=== PATIENT | female | born 1975 | race Caucasian/White ===

== ENCOUNTER 2016-09-27 09:19 | Emergency (ER) | payer OTHER ==
--- NOTE | 2016-09-27 11:06 | ED ORDER SUMMARY ---
..... Patient: JENNY RADER OrderSheet [facility] VisitID: [id number] [address] [place] [address] 40y, F Registration Date/Time: 09/27/2016 ORDER SHEET Weight: 90.7 kg (stated) Allergies: No Known Drug Allergy GENERAL ORDERS: MEDICATION ORDERS: Zofran ODT PO 4 mg (NOW) (10:09 09/27/2016 Marya Avalos) (10:20 Kim R.N.) Motrin PO 800 mg (NOW) (10:09/27/2016 Marya Avalos) (10:21 Kmi R.N.) Claritin PO 10 mg (NOW) (10:09/27/2016 Marya Avalos) (10:21 Kim R.N.) IV FLUIDS: ORDER SHEET NOTES: [Electronically signed by aJcob Wiley Dr. (11:06 09/27/2016)] [Electronically signed by Bipin Reilly R.N. (12:43 09/27/2016)] [Electronically locked/signed by Bipin Reilly R.N. (12:43 09/27/2016)]
--- NOTE | 2016-09-27 11:06 | ED CLINICAL REPORT ---
Clinical Report - Physicians/Mid Levels [facility] [address] [place] [address] 09/27/2016 9:22 Patient: JENNY RADER Arrived- By private vehicle. Historian- patient. HISTORY OF PRESENT ILLNESS Chief Complaint: COUGH. headache. This started today and is still present but is improving. It was gradual in onset and has been constant but is not gone now. The illness is described as moderate. The patient has had a cough, nasal congestion, muscle aches and a nasal discharge. (patient was recently moving here to the area. Reports that she has been working too hard likely and overdid it. States that she went to bed last night at 9 PM Even though it was New Year's Erin. reports no history of headaches however states that her head hurts all over. Reports it is constant. States that it took more than 1 hour for the headache to reach its maximum intensity. States that the headache is now improving. Patient states that she had taken Tylenol prior to arrival. Reports no other alleviating or aggravating factors. No family history of headaches. No personal history of headaches.). Additional history - The patient has had contact with a sick individual. (spouse). Similar symptoms previously: None. Recent medical care: Not recently seen/assessed. REVIEW OF SYSTEMS No headache, eye discomfort, pedal edema or skin rash. No visual symptoms. All systems otherwise negative, except as recorded above. PAST HISTORY See nurses notes. Additional Surgeries: no known surgeries. Medications: None. Allergies: No Known Drug Allergy. SOCIAL HISTORY Smoker- current status unknown. No alcohol use or drug use. Recent travel. Is a local resident. FAMILY HISTORY (no family history of diabetes, hypertension, headaches, or neurological problems.). ADDITIONAL NOTES The nursing notes have been reviewed. PHYSICAL EXAM Vital Signs: 09/27/2016 09:54 BP: 107/69. HR: 74. RR: 16. O2 saturation: 96%. Temp: 98.6 F. Pain level now: 3/10. Blood pressure normal. Oxygen saturation normal. Appearance: Alert. No acute distress. Eyes: Pupils equal, round and reactive to light. Eyes normal inspection. ENT: Ears normal. Nose normal. Pharynx normal. Uvula midline. (No papilledema. Normal retinal vasculature.). Neck: Normal inspection. Neck supple. CVS: Normal heart rate and rhythm. Heart sounds normal. Pulses normal. Respiratory: No respiratory distress. Breath sounds normal. Abdomen: Soft and nontender. No organomegaly. Back: Normal inspection. Skin: Skin warm and dry. Normal skin color. No rash. Normal skin turgor. Extremities: Extremities exhibit normal ROM. No lower extremity edema. Neuro: Oriented X 3. No motor deficit. No sensory deficit. PROGRESS AND PROCEDURES Course of Care: the patient is a pleasant 40-year-old female presenting for evaluation of upper respiratory tract symptoms including headache. Do not the patient has meningitis or space-occupying lesion or subarachnoid hemorrhage based on patient's examination and history. Patient's neck is supple. No meningeal signs. Patient was not here. Patient is also afebrile here in the emergency department. Patient has a sick contact. etiology of current symptoms today in the emergency department is likely viral. Do not feel further evaluation or workup is warranted. Do not feel patient needs to be admitted. Medications only provide of her symptomatically control. Patient was reevaluated after administration of medications. Patient reports feeling significantly better. Patient states she feels comfortable with returning home and continuing her care as an outpatient. Discussed the patient workup, diagnosis, home care, follow-up, and return precautions. All questions answered. The patient expressed understanding of these instructions and was agreeable to them. Disposition: Discharged. Condition: good. CLINICAL IMPRESSION 09/27/2016 09:54 BP: 107/69. HR: 74. RR: 16. O2 saturation: 96%. Temp: 98.6 F. Pain level now: 10. Acute headache. Blood pressure normal. Oxygen saturation normal. Acute viral syndrome INSTRUCTIONS Warnings: GENERAL WARNINGS: Return or contact your physician immediately if your condition worsens or changes unexpectedly, if not improving as expected, or if other problems arise. Specifically return if pain, vomiting, bleeding, breathing difficulty or fever. vision changes, numbness, weakness, tingling, or other concerns. Your Current Medications: CONTINUE TAKING THE FOLLOWING MEDICATIONS: None*. Prescription Medications: Phenergan w/ Codeine 10mg / 6.25mg per 5 mL: take 1 teaspoon every 6 hours as needed for pain or cough. Dispense sixty (60) mL. No refill. Substitution is permissible. OTC Medications: Acetaminophen (available over the counter): take according to label instructions. Motrin (available over the counter): take according to label instructions. Claritin 10 mg (available over the counter): take 1 tablet orally every 12 hours as needed for congestion. Dispense thirty (30). No refill. Substitution is permissible. Follow-up: Return to the emergency department in three days as needed. Follow up with your doctor in three days. Reason for referral: Recheck today's concerns. Screening today revealed the patient's blood pressure to be in the normal range. The patient should follow up with a primary care provider for blood pressure management. Understanding of the discharge instructions verbalized by patient. Follow-up with: [facility], , , [address], , [place], [id number] Follow up. Reason for referral: please contact this office if you do not have a primary care doctor. Summary of care provided to patient via paper. (Electronically signed by Jacob Wiley Dr. 09/27/2016 11:06)
--- NOTE | 2016-09-27 11:06 | ED ORDER SUMMARY ---
..... Patient: JENNY RADER OrderSheet [facility] VisitID: [id number] [address] [place] [address] 40y, F Registration Date/Time: 09/27/2016 ORDER SHEET Weight: 90.7 kg (stated) Allergies: No Known Drug Allergy GENERAL ORDERS: MEDICATION ORDERS: Zofran ODT PO 4 mg (NOW) (10:09 09/27/2016 Marya Avalos) (10:20 Kim R.N.) Motrin PO 800 mg (NOW) (10:09/27/2016 Marya Avalos) (10:21 Kim R.N.) Claritin PO 10 mg (NOW) (10:09/27/2016 Marya Avalos) (10:21 Kim R.N.) IV FLUIDS: ORDER SHEET NOTES: [Electronically signed by Jacob Wiley Dr. (11:06 09/27/2016)] [Electronically signed by Bipin Reilly R.N. (12:43 09/27/2016)] [Electronically locked/signed by Bipin Reilly R.N. (12:43 09/27/2016)]
--- NOTE | 2016-09-27 11:06 | ED CLINICAL REPORT ---
Clinical Report - Physicians/Mid Levels [facility] [address] [place] [address] 09/27/2016 9:22 Patient: JENNY RADER Arrived- By private vehicle. Historian- patient. HISTORY OF PRESENT ILLNESS Chief Complaint: COUGH. headache. This started today and is still present but is improving. It was gradual in onset and has been constant but is not gone now. The illness is described as moderate. The patient has had a cough, nasal congestion, muscle aches and a nasal discharge. (patient was recently moving here to the area. Reports that she has been working too hard likely and overdid it. States that she went to bed last night at 9 PM Even though it was New Year's Erin. reports no history of headaches however states that her head hurts all over. Reports it is constant. States that it took more than 1 hour for the headache to reach its maximum intensity. States that the headache is now improving. Patient states that she had taken Tylenol prior to arrival. Reports no other alleviating or aggravating factors. No family history of headaches. No personal history of headaches.). Additional history - The patient has had contact with a sick individual. (spouse). Similar symptoms previously: None. Recent medical care: Not recently seen/assessed. REVIEW OF SYSTEMS No headache, eye discomfort, pedal edema or skin rash. No visual symptoms. All systems otherwise negative, except as recorded above. PAST HISTORY See nurses notes. Additional Surgeries: no known surgeries. Medications: None. Allergies: No Known Drug Allergy. SOCIAL HISTORY Smoker- current status unknown. No alcohol use or drug use. Recent travel. Is a local resident. FAMILY HISTORY (no family history of diabetes, hypertension, headaches, or neurological problems.). ADDITIONAL NOTES The nursing notes have been reviewed. PHYSICAL EXAM Vital Signs: 09/27/2016 09:54 BP: 107/69. HR: 74. RR: 16. O2 saturation: 96%. Temp: 98.6 F. Pain level now: 3/10. Blood pressure normal. Oxygen saturation normal. Appearance: Alert. No acute distress. Eyes: Pupils equal, round and reactive to light. Eyes normal inspection. ENT: Ears normal. Nose normal. Pharynx normal. Uvula midline. (No papilledema. Normal retinal vasculature.). Neck: Normal inspection. Neck supple. CVS: Normal heart rate and rhythm. Heart sounds normal. Pulses normal. Respiratory: No respiratory distress. Breath sounds normal. Abdomen: Soft and nontender. No organomegaly. Back: Normal inspection. Skin: Skin warm and dry. Normal skin color. No rash. Normal skin turgor. Extremities: Extremities exhibit normal ROM. No lower extremity edema. Neuro: Oriented X 3. No motor deficit. No sensory deficit. PROGRESS AND PROCEDURES Course of Care: the patient is a pleasant 40-year-old female presenting for evaluation of upper respiratory tract symptoms including headache. Do not the patient has meningitis or space-occupying lesion or subarachnoid hemorrhage based on patient's examination and history. Patient's neck is supple. No meningeal signs. Patient was not here. Patient is also afebrile here in the emergency department. Patient has a sick contact. etiology of current symptoms today in the emergency department is likely viral. Do not feel further evaluation or workup is warranted. Do not feel patient needs to be admitted. Medications only provide of her symptomatically control. Patient was reevaluated after administration of medications. Patient reports feeling significantly better. Patient states she feels comfortable with returning home and continuing her care as an outpatient. Discussed the patient workup, diagnosis, home care, follow-up, and return precautions. All questions answered. The patient expressed understanding of these instructions and was agreeable to them. Disposition: Discharged. Condition: good. CLINICAL IMPRESSION 09/27/2016 09:54 BP: 107/69. HR: 74. RR: 16. O2 saturation: 96%. Temp: 98.6 F. Pain level now: 10. Acute headache. Blood pressure normal. Oxygen saturation normal. Acute viral syndrome INSTRUCTIONS Warnings: GENERAL WARNINGS: Return or contact your physician immediately if your condition worsens or changes unexpectedly, if not improving as expected, or if other problems arise. Specifically return if pain, vomiting, bleeding, breathing difficulty or fever. vision changes, numbness, weakness, tingling, or other concerns. Your Current Medications: CONTINUE TAKING THE FOLLOWING MEDICATIONS: None*. Prescription Medications: Phenergan w/ Codeine 10mg / 6.25mg per 5 mL: take 1 teaspoon every 6 hours as needed for pain or cough. Dispense sixty (60) mL. No refill. Substitution is permissible. OTC Medications: Acetaminophen (available over the counter): take according to label instructions. Motrin (available over the counter): take according to label instructions. Claritin 10 mg (available over the counter): take 1 tablet orally every 12 hours as needed for congestion. Dispense thirty (30). No refill. Substitution is permissible. Follow-up: Return to the emergency department in three days as needed. Follow up with your doctor in three days. Reason for referral: Recheck today's concerns. Screening today revealed the patient's blood pressure to be in the normal range. The patient should follow up with a primary care provider for blood pressure management. Understanding of the discharge instructions verbalized by patient. Follow-up with: [facility], , , [address], , [place], [address] Follow up. Reason for referral: please contact this office if you do not have a primary care doctor. Summary of care provided to patient via paper. (Electronically signed by Jacob Wiley Dr. 09/27/2016 11:06)
--- NOTE | 2016-09-27 11:06 | ED NURSING NOTES ---
Clinical Report - Nurses [facility] [address] [place] [address] 09/27/2016 9:22 Patient: JENNY RADER TRIAGE Triage time 0954 AM. Chief Complaint: HEADACHE. Alert. No acute distress. SEPSIS SCREEN: Sepsis Screen. Negative (no infection suspected/documented). DONTAE COMA SCORE: Harmony Coma Scale: 15- eyes open spontaneously (4); best verbal response- oriented x 4 (5); best motor response- obeys commands (6). --10:00 Bipin Reilly R.N. 09:54 09/27/16. BP: 107/69 taken on the left arm, via an automated monitor, while lying. HR: 74. RR: 16. O2 saturation: 96%. Temp: 98.6 F (oral). Pain level now: 12/04. --10:00 Bipin Reilly R.N. Weight: 90.7 kg stated. Height/Length: 65 inches Per Patient. BMI: 33.3. --09:56 Bipin Reilly R.N. Medications None. --09:56 Bipin Reilly R.N. Allergies No Known Drug Allergy. --09:57 Bipin Reilly R.N. History Arrived by private vehicle. Historian: patient. Accompanied by family. This started about 0400 AM. ( Patient presents to the ED with symptoms of a cough x4 days and headache beginning at 0400am this morning. Patient states that she also had symptoms of nausea this morning along with her headache. Patient states that she took Tylenol this morning which helped take the edge off the headache and states that she is no longer nauseous. Patient states that her has also been experiencing similar symptoms.). ( cough, "icky"). Treatment [employer]: Took Tylenol. PAST MEDICAL HX: Negative. SOCIAL HX: Light tobacco smoker (cigarette)- less than 1/2 a pack per day. She has had contact with a sick spouse. Symptoms of the sick contact include cough. SELF HARM ASSESSMENT: A self harm assessment was performed. The patient answered "no" to the question "Have you recently felt down, depressed, or hopeless?", "Have you noticed less interest or pleasure in doing things?", "Do you have thoughts of harming or killing yourself?", "Are you here because you tried to hurt yourself?", "Have you ever tried to hurt yourself before today?", "Have you recently had thoughts about harming or killing others?" and "Do you have any dangerous items in your possession?". FALL RISK ASSESSMENT: Fall risk assessment completed. No fall risk identified. NUTRITIONAL RISK ASSESSMENT: The nutritional risk assessment revealed no deficiencies. FUNCTIONAL ASSESSMENT: Functional assessment: no impairments noted. LEARNING NEEDS ASSESSMENT: The learning needs assessment revealed no barriers. SKIN INTEGRITY ASSESSMENT: Skin integrity risk assessment completed. No skin integrity risk identified. --10:00 Bipin Reilly R.N. PROBLEMS: no known problems. ADDITIONAL SURGERIES: no known surgeries. Assessment The patient states feels better. --10:00 Bipin Reilly R.N. Interventions ID band on patient. --10:00 Bipin Reilly R.N. PHYSICAL ASSESSMENT Ambulatory to room. GENERAL / NEURO / PSYCH: Alert. Oriented X 4. Appears in no acute distress. Speech within normal limits. HEENT: No facial asymmetry noted. Pupils equal, round and reactive to light. RESPIRATORY: No respiratory distress. Respirations not labored. Cough productive of scant amounts of thick sputum. Chest nontender. Breath sounds within normal limits. CVS: Capillary refill less than 2 seconds. GI / : The patient has had nausea. Abdomen soft and nontender. SKIN: Skin is warm and dry. --10:01 Bipin Reilly R.N. NURSING PROGRESS NOTES Monitoring of patient in place. Patient gowned. Head of bed elevated. Reassurance given. Lights dimmed. Call light placed in reach. --10:01 Bipin Reilly R.N. 10:20 09/27/2016 Zofran ODT (Ondansetron) PO Oral Disintegrating Tablets 4 mg given. Allergies verified and confirmed 5 rights. --10:20 Bipin Reilly R.N. 10:21 09/27/2016 Motrin PO Tablets 800 mg given. Allergies verified and confirmed 5 rights. --10:21 Bipin Reilly R.N. 10:21 09/27/2016 Claritin (Loratadine) PO Tablets 5 mg given. Allergies verified and confirmed 5 rights. --10:21 Bipin Reilly R.N. DISPOSITION / DISCHARGE 11:23 09/27/16. Departure time: 1120. Condition at departure: improved and stable. No learning barriers present. Discharge instructions provided and reviewed with the patient. Reviewed medication(s) side effects, precautions, dosing and course information. Prescription(s) given to the patient. Patient verbalized understanding. Written instructions provided in Croatian. The patient was discharged by the physician. She was discharged home. She left the Emergency Department ambulatory and via private vehicle. Patient driving. --11:23 Geri Moore R.N. 11:22 09/27/16. BP: 100/57. HR: 67. RR: 16. O2 saturation: 97% on room air. Temp: 98.2 F (oral). Pain level now 0/10. --11:23 Geri Moore R.N. Locked/Released at 09/27/2016 12:44 by Bipin Reilly R.N.
--- NOTE | 2016-09-27 12:44 | ED MAR SUMMARY ---
..... Medication Administration Record [facility] [address] [place] [address] Patient: JENNY RADER Visit ID: [id number] 40y, F Weight: 90.7 kg Height/Length: 65 in BMI: 33.3 ALLERGIES: No Known Drug Allergy Given 10:09/27/2016 Bipin Reilly, RNayeliNNayeli Medication Administered: ZOFRAN ODT [PO] (ONDANSETRON), Dose: 4 mg Oral Disintegrating Tablets PO. Medication Ordered: Zofran ODT PO 4 mg (NOW). Given 10:09/27/2016 Bipin Reilly, R.N. Medication Administered: MOTRIN [PO], Dose: 800 mg Tablets PO. Medication Ordered: Motrin PO 800 mg (NOW). Given 10:09/27/2016 Bipin Reilly, R.N. Medication Administered: CLARITIN [PO] (LORATADINE), Dose: 5 mg Tablets PO. Medication Ordered: Claritin PO 10 mg (NOW).
--- NOTE | 2016-09-27 12:44 | ED MED RECONCILIATION SUMMARY ---
Patient: JENNY RADER Medication Reconciliation Report [facility] VisitID: [id number] [address] [place] [address] 40y, F Registration Date/Time: 09/27/2016 Weight: 90.7 kg Height/Length: 65 in. BMI: 33.3 ALLERGIES: No Known Drug Allergy The patient's Home Medications are listed below: NONE. The source(s) of the original Home Medication information: Not obtained. The following Medications were given to the patient in the Emergency Department: Zofran ODT [PO] PO 4 mg, administered: 09/27/2016 10:20:00 AM Motrin [PO] PO 800 mg, administered: 09/27/2016 10:21:00 AM Claritin [PO] PO 5 mg, administered: 09/27/2016 10:21:00 AM The following Medications were prescribed to the patient: Acetaminophen (available over the counter): take according to label instructions. -- Jacob Wiley Dr. Motrin (available over the counter): take according to label instructions. -- Jacob Wiley Dr. Claritin 10 mg (available over the counter): take 1 tablet orally every 12 hours as needed for congestion. Dispense thirty (30). No refill. Substitution is permissible. -- Jacob Wiley Dr. Phenergan w/ Codeine 10mg / 6.25mg per 5 mL: take 1 teaspoon every 6 hours as needed for pain or cough. Dispense sixty (60) mL. No refill. Substitution is permissible. -- Jacob Wiley Dr.
--- NOTE | 2016-09-27 12:44 | ED DISCHARGE INSTRUCTIONS ---
Patient: JENNY RADER General Instructions [facility] VisitID: [id number] [address] [place] [address] 40y, F Registration Date/Time: 09/27/2016 09/27/2016 09:54 BP: 107/69. HR: 74. RR: 16. O2 saturation: 96%. Temp: 98.6 F. Pain level now: 12/04. Acute headache. Blood pressure normal. Oxygen saturation normal. Acute viral syndrome INSTRUCTIONS Warnings: GENERAL WARNINGS: Return or contact your physician immediately if your condition worsens or changes unexpectedly, if not improving as expected, or if other problems arise. Specifically return if pain, vomiting, bleeding, breathing difficulty or fever. vision changes, numbness, weakness, tingling, or other concerns. Your Current Medications: CONTINUE TAKING THE FOLLOWING MEDICATIONS: None*. Prescription Medications: Phenergan w/ Codeine 10mg / 6.25mg per 5 mL: take 1 teaspoon every 6 hours as needed for pain or cough. Dispense sixty (60) mL. No refill. Substitution is permissible. OTC Medications: Acetaminophen (available over the counter): take according to label instructions. Motrin (available over the counter): take according to label instructions. Claritin 10 mg (available over the counter): take 1 tablet orally every 12 hours as needed for congestion. Dispense thirty (30). No refill. Substitution is permissible. Follow-up: Return to the emergency department in three days as needed. Follow up with your doctor in three days. Reason for referral: Recheck today's concerns. Screening today revealed the patient's blood pressure to be in the normal range. The patient should follow up with a primary care provider for blood pressure management. Understanding of the discharge instructions verbalized by patient. Follow-up with: [facility], , , [address] [place], [id number] Follow up. Reason for referral: please contact this office if you do not have a primary care doctor. Summary of care provided to patient via paper. ADDITIONAL INFORMATION Viral Respiratory Illness [Adult] You have an Upper Respiratory Illness (URI) caused by a virus. This illness is contagious during the first few days. It is spread through the air by coughing and sneezing or by direct contact (touching the sick person and then touching your own eyes, nose or mouth). Most viral illnesses go away within 7-10 days with rest and simple home remedies. Sometimes, the illness may last for several weeks. Antibiotics will not kill a virus and are generally not prescribed for this condition. Home Care: 1) If symptoms are severe, rest at home for the first 2-3 days. When you resume activity, don't let yourself get too tired. 2) Avoid being exposed to cigarette smoke (yours or others). 3) Tylenol (acetaminophen) or ibuprofen (Advil, Motrin) will help fever, muscle aching and headache. (Persons under 18 with fever should not take aspirin since this may cause liver damage.) 4) Your appetite may be poor, so a light diet is fine. Avoid dehydration by drinking 6-8 glasses of fluids per day (water, soft drinks, juices, tea, soup). Extra fluids will help loosen secretions in the nose and lungs. 5) Cftj-eic-svlqexm cold medicines will not shorten the length of time youre sick, but they may be helpful for the following symptoms: cough (Robitussin DM); sore throat (Chloraseptic lozenges or spray); nasal and sinus congestion (Actifed, Sudafed, Chlortrimeton). Follow Up with your doctor or as advised if you dont improve over the next week. Get Prompt Medical Attention if any of the following occur: -- Cough with lots of colored sputum (mucus) or blood in your sputum -- Chest pain, shortness of breath, wheezing or have trouble breathing -- Severe headache; face, neck or ear pain -- Fever over 100.4 F (38.0 C) for more than three days -- You cant swallow due to throat pain Headache [Unspecified] The cause of your headache today is not clear, but it does not appear to be the sign of any serious illness. Under stress, some people tense the muscles of their shoulder, neck and scalp without knowing it. If this condition lasts long enough, a TENSION HEADACHE can occur. A MIGRAINE HEADACHE is caused by changes in blood flow to the brain. A migraine attack may be triggered by emotional stress, hormone changes during the menstrual cycle, oral contraceptives, alcohol use, certain foods containing tyramine, eye strain, weather changes, missing meals, lack of sleep or oversleeping. Other causes of headache include a viral illness with high fever, head injury with concussion, sinus, ear or throat infection, dental pain and TMJ (jaw joint) pain. More serious but less common causes of headache include stroke, brain hemorrhage, brain tumor, meningitis and encephalitis. Home Care: If you were given pain medicine for this headache, do not drive yourself home. Arrange for a ride, instead. When you get home, try to sleep. You should feel much better when you wake up. Apply heat to the back of your neck to relieve neck muscle spasm. Migraine headaches may respond best to an ice pack on the forehead or at the base of the skull. If you are having nausea or vomiting, follow a light diet until your headache is relieved. If you have a migraine type headache, use sunglasses when in the daylight or around bright indoor lighting until symptoms improve. Bright glaring light can worsen this kind of headache. Follow Up with your doctor if the headache is not better within the next 24 hours. If you have frequent headaches you should discuss a treatment plan with your primary care doctor. By being aware of the earliest signs of headache, and starting treatment right away, you may be able to stop the pain yourself. Get Prompt Medical Attention if any of the following occur: Worsening of your head pain or no improvement within 24 hours Repeated vomiting (unable to keep liquids down) Fever of 100.4F (38C) or higher, or as directed by your healthcare provider Stiff neck Extreme drowsiness, confusion or fainting Dizziness, vertigo (dizziness with spinning sensation) Weakness of an arm or leg or one side of the face Difficulty with speech or vision Loratadine Oral tablet, extended release 24 hour What is this medicine? LORATADINE (henry AT a steven) is an antihistamine. It helps to relieve sneezing, runny nose, and itchy, watery eyes. This medicine is used to treat the symptoms of allergies. It is also used to treat itchy skin rash and hives. How should I use this medicine? Take this medicine by mouth with a glass of water. Follow the directions on the label. You may take this medicine with food or on an empty stomach. Take your medicine at regular intervals. Do not take your medicine more often than directed. Talk to your receiving lead regarding the use of this medicine in children. While this medicine may be used in children as young as 6 years for selected conditions, precautions do apply. What side effects may I notice from receiving this medicine? Side effects that you should report to your doctor or health career technical education instructor as soon as possible: allergic reactions like skin rash, itching or hives, swelling of the face, lips, or tongue breathing problems unusually restless or nervous Side effects that usually do not require medical attention (report to your doctor or health career technical education instructor if they continue or are bothersome): drowsiness dry or irritated mouth or throat headache What may interact with this medicine? other medicines for colds or allergies What if I miss a dose? If you miss a dose, take it as soon as you can. If it is almost time for your next dose, take only that dose. Do not take double or extra doses. Where should I keep my medicine? Keep out of the reach of children. Store at room temperature between 2 and 30 degrees C (36 and 86 degrees F). Protect from moisture. Throw away any unused medicine after the expiration date. What should I tell my health care provider before I take this medicine? They need to know if you have any of these conditions: asthma kidney disease liver disease an unusual or allergic reaction to loratadine, other antihistamines, other medicines, foods, dyes, or preservatives or trying to get breast-feeding What should I watch for while using this medicine? Tell your doctor or healthcare professional if your symptoms do not start to get better or if they get worse. Your mouth may get dry. Chewing sugarless gum or sucking hard candy, and drinking plenty of water may help. Contact your doctor if the problem does not go away or is severe. You may get drowsy or dizzy. Do not drive, use machinery, or do anything that needs mental alertness until you know how this medicine affects you. Do not stand or sit up quickly, especially if you are an older patient. This reduces the risk of dizzy or fainting spells. You have been given the following additional information: Uri, Viral, No Abx (Adult) Headache, Unspecified Loratadine Oral tablet, extended release 24 hour (Electronically signed by Jacob Wiley Dr. 09/27/2016 11:06)
--- NOTE | 2016-09-27 12:44 | ED MAR SUMMARY ---
..... Medication Administration Record [facility] [address] [place] [address] Patient: JENNY RADER Visit ID: [id number] 40y, F Weight: 90.7 kg Height/Length: 65 in BMI: 33.3 ALLERGIES: No Known Drug Allergy Given 10:09/27/2016 Bipin Reilly, RNayeliNNayeli Medication Administered: ZOFRAN ODT [PO] (ONDANSETRON), Dose: 4 mg Oral Disintegrating Tablets PO. Medication Ordered: Zofran ODT PO 4 mg (NOW). Given 10:09/27/2016 Bipin Reilly, R.N. Medication Administered: MOTRIN [PO], Dose: 800 mg Tablets PO. Medication Ordered: Motrin PO 800 mg (NOW). Given 10:09/27/2016 Bipin Reilly, R.N. Medication Administered: CLARITIN [PO] (LORATADINE), Dose: 5 mg Tablets PO. Medication Ordered: Claritin PO 10 mg (NOW).
--- NOTE | 2016-09-27 12:44 | ED MED RECONCILIATION SUMMARY ---
Patient: JENNY RADER Medication Reconciliation Report [facility] VisitID: [id number] [address] [place] [address] 40y, F Registration Date/Time: 09/27/2016 Weight: 90.7 kg Height/Length: 65 in. BMI: 33.3 ALLERGIES: No Known Drug Allergy The patient's Home Medications are listed below: NONE. The source(s) of the original Home Medication information: Not obtained. The following Medications were given to the patient in the Emergency Department: Zofran ODT [PO] PO 4 mg, administered: 09/27/2016 10:20:00 AM Motrin [PO] PO 800 mg, administered: 09/27/2016 10:21:00 AM Claritin [PO] PO 5 mg, administered: 09/27/2016 10:21:00 AM The following Medications were prescribed to the patient: Acetaminophen (available over the counter): take according to label instructions. -- Jacob Wiley Dr. Motrin (available over the counter): take according to label instructions. -- Jacob Wiley Dr. Claritin 10 mg (available over the counter): take 1 tablet orally every 12 hours as needed for congestion. Dispense thirty (30). No refill. Substitution is permissible. -- Jacob Wiley Dr. Phenergan w/ Codeine 10mg / 6.25mg per 5 mL: take 1 teaspoon every 6 hours as needed for pain or cough. Dispense sixty (60) mL. No refill. Substitution is permissible. -- Jacob Wiley Dr.
== END 2016-09-27 11:20 | disposition home or self-care (01) ==
LOC: ED SRH 09:19
DX: R51 Headache (principal); B34.9 Viral infection, unspecified